=== PATIENT | male | born 1995 | race Caucasian/White ===

== ENCOUNTER → 2018-03-07 | Outpatient (CLI) | payer OTHER ==
--- NOTE | 2018-03-07 14:35 | Diagnostic Imaging Report ---
MRI of the right hand without contrast. History: Hand pain. Laceration of the fourth and fifth digits. Decreased range of motion. Work injury Technique: Multiplanar multisequence MRI of the hand without contrast. Findings: Full-thickness laceration involving the flexor tendons of the fifth finger at the level of the proximal interphalangeal joint with adjacent metallic artifact best seen on series 3 image 25. There is retraction proximally to the level of the mid metacarpals. Full-thickness laceration involving the flexor tendons of the fourth finger at the level of the proximal interphalangeal joint. There is retraction proximally to the level of the mid metacarpals. No acute fracture, subluxation or avascular necrosis. No bone marrow edema is seen. The remainder of the visualized ligaments and tendons are intact. The visualized muscles are normal in size, signal intensity and morphology. The visualized neurovascular bundles are intact. Impression: Full-thickness laceration involving the flexor tendons of the fifth finger at the level of the proximal interphalangeal joint with adjacent metallic artifact. There is retraction proximally to the level of the mid metacarpals. Full-thickness laceration involving the flexor tendons of the fourth finger at the level of the proximal interphalangeal joint. There is retraction proximally to the level of the mid metacarpals. Signed by: Dr. Lv Pierce M.D. on 03/07/2018 2:31 PM
== END ==
LOC: EDSEX 08:28 → MRI 08:28
PROVIDERS: ATTEND Family Medicine
DX: S61.216A Laceration without foreign body of right little finger without damage to nail, initial encounter (principal); S61.214A Laceration without foreign body of right ring finger without damage to nail, initial encounter; Y99.0 Civilian activity done for income or pay